=== PATIENT | male | born 1960 | race Caucasian/White ===

== ENCOUNTER 2020-07-02 16:31 | Emergency (ER) | payer OTHER, BC ==
[2020-07-02] MEDS ORDERED: Lidocaine 1% PF 2 ML SDV INJECT ONE (16:48)
[2020-07-02] MEDS ORDERED: Bacitracin Oint 1 GM U/D Packet TOP ONE (16:48)
[2020-07-02] MEDS ORDERED: Diphtheria,Pertussis(Acell),Tetanus Vaccine 0.5 ML Syringe IM ONE (16:48)
--- NOTE | 2020-07-02 16:48 | EDM.PDOC ---
ED HPI GENERAL MEDICAL PROBLEM - General Chief Complaint: Laceration Stated Complaint: LT MIDDLE FINGER LACERATION Time Seen by Provider: 07/02/20 16:33 Source of Information: Reports: Patient History Limitations: Reports: No Limitations - History of Present Illness INITIAL COMMENTS - FREE TEXT/NARRATIVE: HISTORY AND PHYSICAL: History of present illness: Patient is a 59-year-old male who presents to the emergency room with complaints of a laceration to the volar aspect of the distal left middle finger. States he cut his finger on some aluminum around 4 PM while at work. He denies any other extremity involvement. Offers no systemic complaints. Unsure of his last tetanus update. Review of systems: As per history of present illness and below otherwise all systems reviewed and negative. Past medical history: As per history of present illness and as reviewed below otherwise noncontributory. Surgical history: As per history of present illness and as reviewed below otherwise noncontributory. Social history: See social history for further information Family history: As per history of present illness and as reviewed below otherwise noncontributory. Physical exam: General: Well developed and well nourished. Alert and orientated x 3. Nontoxic in appearance and in no acute distress. Vital signs are stable and have been reviewed by me. Nursing notes were reviewed. HEENT: Atraumatic, normocephalic, pupils equal and reactive bilaterally, negative for conjunctival pallor or scleral icterus, mucous membranes moist, trachea midline. No drooling or trismus noted. No meningeal signs. No hot potato voice noted. Skin: 1.5cm "C" shape laceration to distal volar aspect of left 3rd digit. Remaining skin is intact, warm, dry. No lesions or rashes noted. Hematologic: No petechiae or purpra. Mucosa appropriate color and normal nail bed color and refill. Extremities: See skin for details, moves all extremities per self without difficulty or deficits, negative for cords or calf pain. Neurovascular unremarkable. Neuro: Awake, alert, oriented. Cranial nerves II through XII unremarkable. Cerebellum unremarkable. Motor and sensory unremarkable throughout. Exam nonfocal. Psychiatric: Mood and affect are appropriate. Normal thought process. Answering questions appropriately. Notes: *This patient was seen and evaluated during the 2019 SARS-CoV-2 novel cor onavirus pandemic period. Community viral transmission is ongoing at time of this encounter and the emergency department is operating under pandemic response procedures. Area was thoroughly cleansed and irrigated with wound wash. 1% lidocaine was used to anesthetize the area. 4-0 nylon, #4 interrupted sutures were placed. Patient tolerated well. Tetanus has been updated. Wound care instructions provided. I have talked with the patient about today's findings, in addition to providing specific details for plan of care. Reassessment at the time of disposition demonstrates that the patient is in no acute distress. The patient is stable for discharge, counseling was provided and we discussed in great detail signs and symptoms that would prompt them to return to the Emergency Department. Medication, follow up and supportive care measures were reviewed and discussed. Voices understanding and is agreeable to plan of care. Denies any further questions or concerns at this time. Diagnostics: None Therapeutics: Lidocaine, Boostrix, Bacitracin Prescription: None Impression: Laceration Plan: 1. Keep the area clean and dry. Continue to monitor for signs of infection. Sutures to be removed in 7-10 days. 2. Tylenol and/or ibuprofen as needed for pain management. 3. Please follow-up with your primary care provider in the next 1-2 days. Return to the ED as needed and as discussed. Definitive disposition and diagnosis as appropriate pending reevaluation and review of above. ED ROS GENERAL - Review of Systems Review Of Systems: Comprehensive ROS is negative, except as noted in HPI. ED EXAM, SKIN/RASH Exam: See Below (See dictation) ED SKIN PROCEDURES - Laceration/Wound Repair Left middle finger Appearance: Subcutaneous, Linear Distal NVT: Neuro & Vascular Intact, No Tendon Injury Anesthetic Type: Local Local Anesthetic Volume: 2cc Skin Prep: Chlorhexidine (Hibiciens), Providone-Iodine (Betadine), Sterile Drape Saline Irrigation (cc's): 250 Exploration/Debridement/Repair: Wound Explored, In a Bloodless Field, Explored to Base Closed with: Sutures Lac/Wound length In cm: 1.5 Suture Size: 4-0 # of Sutures: 4 Suture Type: Nylon, Interrupted, Simple Drain Placement: No Sterile Dressing Applied: Provider Tetanus Status Addressed: Yes Complications: No Course - Orders/Labs/Meds Orders: Active Orders 24 hr Category Date Time Status Vaccines to be Administered [RC] PER UNIT ROUTINE Care 07/02/20 16:48 Ordered Bacitracin [Bacitracin Oint 1 GM] Med 07/02/20 16:48 Once 1 dose TOP ONETIME ONE Diphth,Pertuss(Acell),Tet Vac [Boostrix] Med 07/02/20 16:48 Once 0.5 ml IM .ONCE ONE Lidocaine 1% [Xylocaine-MPF 1%] Med 07/02/20 16:48 Once 2 ml INJECT ONETIME ONE Departure - Departure Time of Disposition: 17:10 Disposition: Home, Self-Care 01 Clinical Impression: Laceration - Discharge Information Forms: ED Department Discharge Additional Instructions: The following information is given to patients seen in the emergency department who are being discharged to home. This information is to outline your options for follow-up care. We provide all patients seen in our emergency department with a follow-up referral. The need for follow-up, as well as the timing and circumstances, are variable depending upon the specifics of your emergency department visit. If you don't have a primary care physician on staff, we will provide you with a referral. We always advise you to contact your personal physician following an emergency department visit to inform them of the circumstance of the visit and for follow-up with them and/or the need for any referrals to a consulting specialist. The emergency department will also refer you to a specialist when appropriate. This referral assures that you have the opportunity for follow-up care with a specialist. All of these measure are taken in an effort to provide you with optimal care, which includes your follow-up. Under all circumstances we always encourage you to contact your private physician who remains a resource for coordinating your care. When calling for follow-up care, please make the office aware that this follow-up is from your recent emergency room visit. If for any reason you are refused follow-up, please contact the [facility] Emergency Department at and asked to speak to the emergency department charge nurse. [facility] [address] [place] [id number] [facility] [address] [place] [address] Thank you for choosing the [facility] emergency department in [place] for your medical needs today. It was a pleasure caring for you. Today you were seen in the emergency department for laceration repair. 1. Keep the area clean and dry. Continue to monitor for signs of infection. Sutures to be removed in 7-10 days. 2. Tylenol and/or ibuprofen as needed for pain management. 3. Please follow-up with your primary care provider in the next 1-2 days. Return to the ED as needed and as discussed. - My Orders Last 24 Hours: My Active Orders 07/02/20 16:48 Vaccines to be Administered [RC] PER UNIT ROUTINE Bacitracin [Bacitracin Oint 1 GM] 1 dose TOP ONETIME ONE Diphth,Pertuss(Acell),Tet Vac [Boostrix] 0.5 ml IM .ONCE ONE Lidocaine 1% [Xylocaine-MPF 1%] 2 ml INJECT ONETIME ONE - Assessment/Plan Last 24 Hours: My Active Orders 07/02/20 16:48 Vaccines to be Administered [RC] PER UNIT ROUTINE Bacitracin [Bacitracin Oint 1 GM] 1 dose TOP ONETIME ONE Diphth,Pertuss(Acell),Tet Vac [Boostrix] 0.5 ml IM .ONCE ONE Lidocaine 1% [Xylocaine-MPF 1%] 2 ml INJECT ONETIME ONE
== END 2020-07-02 17:39 | disposition home or self-care (01) ==
LOC: MW.ED 16:31
DX: S61.213A Laceration without foreign body of left middle finger without damage to nail, initial encounter (principal); Z23 Encounter for immunization; W26.8XXA Contact with other sharp object(s), not elsewhere classified, initial encounter; Y99.0 Civilian activity done for income or pay
CPT/HCPCS: 12001; 90471; 90715; 99282; 99282-25

== ENCOUNTER 2020-07-10 14:41 | Emergency (ER) | payer OTHER, BC | END 2020-07-10 15:03 | disposition left against medical advice (07) | LOC: MW.ED 14:41 | DX: S61.213D Laceration without foreign body of left middle finger without damage to nail, subsequent encounter (principal); X58.XXXD Exposure to other specified factors, subsequent encounter | CPT/HCPCS: 99281 ==